=== PATIENT | male | born 1985 | race Two or more races ===

== ENCOUNTER 2016-08-11 13:20 | Emergency (ER) | payer OTHER ==
[~2016-08-11] VITALS: Ht 180.3 cm; Wt 116.1 kg
[2016-08-11 13:32] VITALS: BP 137/79
--- NOTE | 2016-08-11 14:07 | NUR ---
PATIENT TO OF1 AT THIS TIME.
[2016-08-11] MEDS ORDERED: ACETAMIN/CODEINE 120/12MG-5ML 5 ML UDC PO ONE (14:15)
[2016-08-11] MEDS ORDERED: LIDOCAINE VISCOUS 2% 20 ML UDC PO ONE (14:15)
[2016-08-11] MEDS ORDERED: PENICILLIN G BENZATHINE L-A 1.2 MU/2 ML SYR IM ONE (14:15)
--- NOTE | 2016-08-11 14:41 | NUR ---
PATIENT IS A 31 YO MALE BIB SELF FOR SORE THROAT FOR TWO DAYS. AWAKE AND ALERT ABLE TO AMBULATE NO FEVER REPORTS DIFFICULTY SWALLOWING.
[2016-08-11 14:54] VITALS: BP 137/79
--- NOTE | 2016-08-11 14:55 | NUR ---
Patient discharged with v/s stable. Written and verbal after care instructions given and explained. Patient alert, oriented and verbalized understanding of instructions. Ambulatory with steady gait. All questions addressed prior to discharge. ID band removed. Patient advised to follow up with PMD. Rx of KEFLEX, CHLORASCEPTIC, AND TYLENOL NO 3 ELXIER. given. Patient educated on indication of medication including possible reaction and side effects. Opportunity to ask questions provided and answered.
== END 2016-08-11 14:55 | disposition home or self-care (01) ==
LOC: MED 13:20
DX: J02.9 Acute pharyngitis, unspecified (principal); R03.0 Elevated blood-pressure reading, without diagnosis of hypertension; F12.90 Cannabis use, unspecified, uncomplicated
CPT/HCPCS: 96372; 99283; J0561

== ENCOUNTER 2018-09-12 14:06 | Emergency (ER) | payer OTHER ==
[~2018-09-12] VITALS: Ht 177.8 cm; Wt 113.0 kg
[2018-09-12 14:16] VITALS: BP 130/80
--- NOTE | 2018-09-12 14:18 | NUR ---
PT C/O OF THROBBING HEADACHE FOR 4 DAYS. NAUSEA AND DIARRHEA STARTED FORM THIS MORNING. DENIES VOMITING; SKIN IS PINK/WARM/DRY; AAOX4 WITH EVEN AND STEADY GAIT; PT DENIES ANY FEVER, CP, SOB, OR COUGH AT THIS TIME; PATIENT STATES HEADACHE OF 10/10 AT THIS TIME; PATIENT POSITIONED FOR COMFORT; HOB ELEVATED; BEDRAILS UP X1; BED DOWN. ER MD MADE AWARE OF PT STATUS.
[2018-09-12] MEDS ORDERED: KETOROLAC 30 MG/ML VIAL IM ONE (14:35)
[2018-09-12] MEDS ORDERED: NACL 0.9% 500 ML IV ONE (14:35)
--- NOTE | 2018-09-12 14:41 | NUR ---
LAB AT BEDSIDE
[2018-09-12 14:50] LABS: BASOPHILS # (AUTO) 0.1 K/uL (0.00-0.22); BASOPHILS % (AUTO) 0.6 % (0.0-2.0); EOSINOPHILS # (AUTO) 0.1 K/uL (0-0.4); HEMATOCRIT 43.3 % (36-52); HEMOGLOBIN 14.9 g/dL (12.0-18.0); LYMPHOCYTES # (AUTO) 2.7 K/uL (2.0-11.5); LYMPHOCYTES % (AUTO) 29.6 % (20.5-51.1); MEAN CORPUSCULAR HEMOGLOBIN 34 pg (27-31); MEAN CORPUSCULAR HGB CONC 34 g/dL (33-37); MEAN CORPUSCULAR VOLUME 97.3 fL (80-94); MONOCYTES # (AUTO) 0.7 K/uL (0.8-1.0); MONOCYTES % (AUTO) 8.1 % (1.7-9.3); NEUTROPHILS # (AUTO) 5.4 K/uL (1.8-7.7); NEUTROPHILS % (AUTO) 60.7 % (42.2-75.2); PLATELET COUNT (AUTO) 357 K/uL (140-450); RED BLOOD CELL COUNT(AUTO) 4.45 MIL/uL (4.20-6.10); RED CELL DISTRIBUTION WIDTH 12.6 % (11.6-13.7)
[2018-09-12] MEDS ORDERED: KETOROLAC 15 MG/ML VIAL IVP ONE (14:50)
--- NOTE | 2018-09-12 15:12 | NUR ---
uable to provide urine at this time.
[2018-09-12 15:18] LABS: ANION GAP 13.3 (8-16); CARBON DIOXIDE 28.8 mmol/L (21-32); POTASSIUM 4.1 mmol/L (3.5-5.1)
[2018-09-12 15:19] LABS: CREATININE 0.9 mg/dL (0.7-1.3); TOTAL BILIRUBIN 0.5 mg/dL (0.0-1.0)
[2018-09-12] MEDS ORDERED: METOCLOPRAMIDE 10 MG/2 ML INJ VIAL IVP ONE (15:30)
[2018-09-12] MEDS ORDERED: diphenhydrAMINE 50 MG/ML VIAL IVP ONE (15:30)
[2018-09-12] MEDS ORDERED: NACL 0.9% 1,000 ML IV ONE (16:15)
--- NOTE | 2018-09-12 16:37 | NUR ---
pt ambulatory to bathroom for urine sample.
--- NOTE | 2018-09-12 16:58 | NUR ---
pt return from ct via wheelchair.
[2018-09-12 17:05] LABS: APPEARANCE,URINE CLEAR (CLEAR); BILIRUBIN,URINE NEGATIVE (NEGATIVE); BLOOD, URINE 1+ (NEGATIVE); COLOR,URINE YELLOW (YELLOW); LEUKOCYTE ESTERASE ,URINE NEGATIVE (NEGATIVE); NITRITE, URINE NEGATIVE (NEGATIVE); UGLUCOSE NEGATIVE (NEGATIVE)
[2018-09-12 17:22] LABS: WBC,URINE 0-5 /HPF (0-5)
--- NOTE | 2018-09-12 17:38 | NUR ---
pt in bed sleeping, vss, ivf infusing well.
[2018-09-12 17:59] VITALS: BP 112/56
== END 2018-09-12 17:58 | disposition home or self-care (01) ==
LOC: MED 14:06
DX: G43.909 Migraine, unspecified, not intractable, without status migrainosus (principal)
CPT/HCPCS: 36415; 70450; 80053; 81001; 85025; 96361; 96374; 96375; 99284; J1200; J1885; J2765; J7030

== ENCOUNTER 2020-11-30 18:06 | Emergency (ER) | payer OTHER ==
[~2020-11-30] VITALS: Ht 177.8 cm; Wt 113.4 kg
[2020-11-30 18:47] VITALS: BP 90/71
[2020-11-30] MEDS ORDERED: NACL 0.9% 1,000 ML IV ONE (19:50)
[2020-11-30] MEDS ORDERED: KETOROLAC 30 MG/ML VIAL IVP ONE (19:50)
--- NOTE | 2020-11-30 20:09 | NUR ---
AMBULATED TO BED 8
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
[2020-11-30 20:11] LABS: BASOPHILS # (AUTO) 0.1 K/uL (0.00-0.22); BASOPHILS % (AUTO) 0.6 % (0.0-2.0); EOSINOPHILS # (AUTO) 0.1 K/uL (0-0.4); HEMATOCRIT 44.8 % (36-52); HEMOGLOBIN 15.4 g/dL (12.0-18.0); LYMPHOCYTES # (AUTO) 2.7 K/uL (2.0-11.5); LYMPHOCYTES % (AUTO) 29.4 % (20.5-51.1); MEAN CORPUSCULAR HEMOGLOBIN 34 pg (27-31); MEAN CORPUSCULAR HGB CONC 34 g/dL (33-37); MEAN CORPUSCULAR VOLUME 99.7 fL (80-94); MONOCYTES # (AUTO) 0.7 K/uL (0.8-1.0); MONOCYTES % (AUTO) 7.9 % (1.7-9.3); NEUTROPHILS # (AUTO) 5.6 K/uL (1.8-7.7); NEUTROPHILS % (AUTO) 61.1 % (42.2-75.2); PLATELET COUNT (AUTO) 373 K/uL (140-450); RED BLOOD CELL COUNT(AUTO) 4.49 MIL/uL (4.20-6.10); RED CELL DISTRIBUTION WIDTH 12.6 % (11.6-13.7); WHITE BLOOD COUNT (AUTO) 9.1 K/uL (4.8-10.8)
--- NOTE | 2020-11-30 20:15 | NUR ---
PATIENT AMBULATED TO THE BATHROOM FOR URINE COLLECTION
[2020-11-30 20:26] LABS: ALBUMIN 4.3 g/dL (3.4-5.0); ANION GAP 12.9 (8-16); CARBON DIOXIDE 26.1 mmol/L (21-32); CREATININE 1.1 mg/dL (0.6-1.3); TOTAL BILIRUBIN 0.4 mg/dL (0.0-1.0)
[2020-11-30 20:37] LABS: APPEARANCE,URINE CLEAR (CLEAR); BILIRUBIN,URINE NEGATIVE (NEGATIVE); BLOOD, URINE TRACE-I (NEGATIVE); COLOR,URINE YELLOW (YELLOW); LEUKOCYTE ESTERASE ,URINE NEGATIVE (NEGATIVE); NITRITE, URINE NEGATIVE (NEGATIVE); UGLUCOSE NEGATIVE (NEGATIVE)
[2020-11-30] MEDS ORDERED: KETOROLAC 30 MG/ML VIAL ONE (20:54)
--- NOTE | 2020-11-30 21:02 | NUR ---
PATIENT COMPLAINS OF PAIN OF A 8/10 SHARP IN THE MID BACK. ERMD MADE AWARE
[2020-11-30] MEDS ORDERED: ACETAMINOPHEN 325 MG TAB PO ONE (21:40)
--- NOTE | 2020-11-30 22:22 | NUR ---
patient to CT via w/c
--- NOTE | 2020-11-30 23:09 | NUR ---
ERMD AT BEDSIDE FOR EXAMINATION OF THE PATIENT
--- NOTE | 2020-11-30 23:09 | NUR ---
YENID MADE AWARE OF PATIENT PAIN OF 11/24
[2020-11-30] MEDS ORDERED: MORPHINE SULFATE 4 MG/ML SYR IVP ONE (23:10)
[2020-11-30] MEDS ORDERED: ONDANSETRON 4 MG/2 ML VIAL IVP ONE (23:10)
--- NOTE | 2020-11-30 23:45 | NUR ---
IV removed from left FA and Right AC, catheter intact and site benign. Applied folded 4x4 gauze and tape to stop bleeding.
[2020-11-30] MEDS ORDERED: NAPR-54 PO (23:46)
[2020-11-30 23:53] VITALS: BP 114/53
--- NOTE | 2020-11-30 23:53 | NUR ---
Patient discharged with v/s stable. Written and verbal after care instructions given and explained. Patient alert, oriented and verbalized understanding of instructions. Ambulatory with steady gait. All questions addressed prior to discharge. ID band removed. Patient advised to follow up with PMD. Rx of naproxen given. Work excused form given to patient. Patient educated on indication of medication including possible reaction and side effects. Opportunity to ask questions provided and answered.
== END 2020-11-30 23:53 | disposition home or self-care (01) ==
LOC: MED 18:06
DX: K62.89 Other specified diseases of anus and rectum (principal); K92.1 Melena
CPT/HCPCS: 36415; 74177; 80053; 81003; 83605; 85025; 96361; 96374; 96375; 99285; J1885; J2270; J2405; J7030; Q9967

== ENCOUNTER 2021-05-03 11:58 | Emergency (ER) | payer OTHER ==
[~2021-05-03] VITALS: Ht 177.8 cm; Wt 116.1 kg
[~2021-05-03 11:58] MED LIST: NAPR-54 PO
[2021-05-03 12:47] VITALS: BP 130/77
[2021-05-03] MEDS ORDERED: AMOX-1000 PO (13:35)
[2021-05-03] MEDS ORDERED: NAPR-54 PO (13:35)
[2021-05-03 13:55] VITALS: BP 126/62
--- NOTE | 2021-05-03 13:55 | NUR ---
Patient discharged with v/s stable. Written and verbal after care instructions given FOR HUMAN BITE and explained. Patient alert, oriented and verbalized understanding of instructions. Ambulatory with steady gait. All questions addressed prior to discharge. ID band removed. Patient advised to follow up with PMD. Rx of AUGMENTIN AND NAPROXEN given. Patient educated on indication of medication including possible reaction and side effects. Opportunity to ask questions provided and answered.
[2021-05-04 06:07] LABS: HEPATITIS B SURFACE ANTIGEN Negative (Negative)
== END 2021-05-03 13:55 | disposition home or self-care (01) ==
LOC: MED 11:58
DX: S01.452A Open bite of left cheek and temporomandibular area, initial encounter (principal); Z79.899 Other long term (current) drug therapy; W50.3XXA Accidental bite by another person, initial encounter; Y93.89 Activity, other specified; Y92.89 Other specified places as the place of occurrence of the external cause; Y99.8 Other external cause status
CPT/HCPCS: 36415; 86592; 86702; 86803; 87340; 99283

== ENCOUNTER 2022-05-04 10:33 | Emergency (ER) | payer OTHER ==
[~2022-05-04] VITALS: Ht 177.8 cm; Wt 111.1 kg
[~2022-05-04 10:33] MED LIST changes: +AMOX-1000 PO
[2022-05-04 10:46] VITALS: BP 107/80
--- NOTE | 2022-05-04 10:49 | NUR ---
PT AMBULATED TO LOBBY
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
--- NOTE | 2022-05-04 14:01 | NUR ---
MAICOL KWONG ATTEMPTED TO SPEAK WITH PT, NOT ANSWER IN LOBBY/OUTSIDE
--- NOTE | 2022-05-04 14:31 | NUR ---
2ND ATTEMPT, NO ANSWER IN LOBBY/OUTSIDE. PATIENT ELOPED FROM FACILITY. DISCHARGE INSTRUCTIONS NOT GIVEN TO PATIENT. MAICOL KWONG NOTIFIED.
== END 2022-05-04 12:44 | disposition left against medical advice (07) ==
LOC: MED 10:33
DX: S16.1XXA Strain of muscle, fascia and tendon at neck level, initial encounter (principal); R51.9 Headache, unspecified; V49.88XA Car occupant (driver) (passenger) injured in other specified transport accidents, initial encounter; Y93.89 Activity, other specified; Y92.89 Other specified places as the place of occurrence of the external cause; Y99.8 Other external cause status
CPT/HCPCS: 70450; 72125; 99284

== ENCOUNTER 2023-09-05 15:11 | Emergency (ER) | payer OTHER ==
[~2023-09-05] VITALS: Ht 177.8 cm; Wt 82.6 kg
[~2023-09-05 15:11] MED LIST changes: +NAPR-337 PO; -NAPR-54 PO
[2023-09-05 15:23] VITALS: BP 104/60; PULSE 50; RESP 18; TEMP 97.5; O2SAT 98
[2023-09-05 19:02] LABS: BASOPHILS % (AUTO) 0.7 % (0.0-2.0); EOSINOPHILS % (AUTO) 0.5 % (0.0-4.0); HEMATOCRIT 43.8 % (36-52); HEMOGLOBIN 15.2 g/dL (12.0-18.0); LYMPHOCYTES # (AUTO) 1.5 K/uL (2.0-11.5); LYMPHOCYTES % (AUTO) 22.7 % (20.5-51.1); MEAN CORPUSCULAR HEMOGLOBIN 35 pg (27-31); MEAN CORPUSCULAR HGB CONC 35 g/dL (33-37); MEAN CORPUSCULAR VOLUME 99.9 fL (80-94); MONOCYTES # (AUTO) 0.5 K/uL (0.8-1.0); MONOCYTES % (AUTO) 7.7 % (1.7-9.3); NEUTROPHILS # (AUTO) 4.4 K/uL (1.8-7.7); NEUTROPHILS % (AUTO) 68.4 % (42.2-75.2); PLATELET COUNT (AUTO) 323 K/uL (140-450); RED BLOOD CELL COUNT(AUTO) 4.39 MIL/uL (4.20-6.10); RED CELL DISTRIBUTION WIDTH 12.8 % (11.6-13.7); WHITE BLOOD COUNT (AUTO) 6.4 K/uL (4.8-10.8)
[2023-09-05 19:29] LABS: ANION GAP 12.4 (8-16); CALCIUM 9.1 mg/dL (8.5-10.1); CARBON DIOXIDE 28.6 mmol/L (21-32); CREATININE 0.9 mg/dL (0.6-1.3)
[2023-09-05 20:11] VITALS: BP 110/62; PULSE 61; RESP 18; TEMP 98.2; O2SAT 98
== END 2023-09-05 20:11 | disposition home or self-care (01) ==
LOC: MED 15:11
DX: R05.9 Cough, unspecified (principal); Z79.899 Other long term (current) drug therapy
CPT/HCPCS: 36415; 71046; 80048; 85025; 99284

== ENCOUNTER 2024-01-13 18:19 | Emergency (ER) | payer OTHER ==
[~2024-01-13] VITALS: Ht 177.8 cm; Wt 80.7 kg
[2024-01-13 18:52] VITALS: BP 105/58; PULSE 57; RESP 15; TEMP 98; O2SAT 99
[2024-01-13 20:24] LABS: BASOPHILS % (AUTO) 0.7 % (0.0-2.0); EOSINOPHILS # (AUTO) 0.1 K/uL (0-0.4); EOSINOPHILS % (AUTO) 1.1 % (0.0-4.0); HEMATOCRIT 43.1 % (36-52); HEMOGLOBIN 14.9 g/dL (12.0-18.0); LYMPHOCYTES # (AUTO) 2.4 K/uL (2.0-11.5); LYMPHOCYTES % (AUTO) 34.5 % (20.5-51.1); MEAN CORPUSCULAR HEMOGLOBIN 34 pg (27-31); MEAN CORPUSCULAR HGB CONC 35 g/dL (33-37); MEAN CORPUSCULAR VOLUME 98.4 fL (80-94); MONOCYTES # (AUTO) 0.6 K/uL (0.8-1.0); MONOCYTES % (AUTO) 8.6 % (1.7-9.3); NEUTROPHILS # (AUTO) 3.9 K/uL (1.8-7.7); NEUTROPHILS % (AUTO) 55.1 % (42.2-75.2); PLATELET COUNT (AUTO) 323 K/uL (140-450); RED BLOOD CELL COUNT(AUTO) 4.38 MIL/uL (4.20-6.10); RED CELL DISTRIBUTION WIDTH 12.6 % (11.6-13.7)
[2024-01-13 20:40] LABS: ALBUMIN 4.2 g/dL (3.4-5.0); ANION GAP 10.6 (8-16); CALCIUM 8.9 mg/dL (8.5-10.1); CARBON DIOXIDE 30.7 mmol/L (21-32); CREATININE 0.9 mg/dL (0.6-1.3); POTASSIUM 4.3 mmol/L (3.5-5.1); TOTAL BILIRUBIN 0.7 mg/dL (0.0-1.0); TOTAL PROTEIN, SERUM 7.6 g/dL (6.4-8.2)
== END 2024-01-13 21:08 | disposition home or self-care (01) ==
LOC: MED 18:19
DX: L02.31 Cutaneous abscess of buttock (principal); Z79.899 Other long term (current) drug therapy
CPT/HCPCS: 36415; 80053; 83690; 85025; 99284